=== PATIENT | male | born 2000 | race Caucasian/White ===

== ENCOUNTER 2020-09-20 09:34 | Emergency (ER) | payer BC ==
[~2020-09-20] VITALS: Ht 162.6 cm; Wt 56.7 kg
[2020-09-20 09:50] VITALS: Ht 162.6 cm; Wt 56.7 kg
[2020-09-20 10:35] LABS: PLATELET COUNT 289 x10^3mcL (130-400); RED CELL DISTRIBUTION WIDTH 12.4 % (11.5-14.5)
[2020-09-20 10:36] LABS: CALCIUM 9.6 mg/dL (8.5-10.1); CARBON DIOXIDE 16.8 mmol/L (21-32); CHLORIDE SERUM 105 mmol/L (98-107); CREATININE SERUM 1.4 mg/dL (0.7-1.3); GFR1 > 60 mL/min; GLUCOSE SERUM 120 mg/dL (74-106); POTASSIUM SERUM 3.8 mmol/L (3.5-5.1); SODIUM SERUM 139 mmol/L (136-145)
[2020-09-20 10:43] LABS: BASOPHIL % 2.1 % (0-2)
[2020-09-20 10:45] LABS: ALBUMIN 4.5 g/dL (3.4-5.0); ALKALINE PHOSPHATASE 85 U/L (46-116); ALT/SGPT 18 U/L (16-63); AST/SGOT 17 U/L (15-37); BILIRUBIN TOTAL 0.9 mg/dL (0.20-1.00); LIPASE 93 IU/L (73-393); TOTAL PROTEIN, SERUM 7.1 g/dL (6.4-8.2)
[2020-09-20 13:48] VITALS: BP 97/56
== END 2020-09-20 13:48 | disposition home or self-care (01) ==
LOC: ED 09:34
PROVIDERS: Emergency Medicine
DX: N20.0 Calculus of kidney (principal); Z88.1 Allergy status to other antibiotic agents
CPT/HCPCS: J1885; J2405